=== PATIENT | male | born 1990 | race Caucasian/White ===

== ENCOUNTER 2020-10-12 17:09 | Emergency (ER) | payer OTHER ==
[~2020-10-12] VITALS: Ht 182.9 cm; Wt 89.8 kg
[~2020-10-12 17:09] MED LIST: CYCL10TA2 PO; MORP10CA7 PO; OXYC1TAB14 PO
[2020-10-12 17:13] VITALS: BP 143/81
--- NOTE | 2020-10-12 18:10 | NUR ---
PT TO ROOM 16 W/ C/O DOG BITE TO R ARM AT THUMB BASE. PT STATES HE WENT TO PET THE DOG AND THE DOG BIT PT. PT DENIES NUMBNESS/TINGLING TO THUMB. CMS INTACT. PT RESTING ON [employer]. MALLORIE.
[2020-10-12] MEDS ORDERED: LIDOCAINE-MPF 1%, 5ML ONE (18:22)
[2020-10-12] MEDS ORDERED: IBUPROFEN 600 MG TABLET ONE (18:24)
[2020-10-12] MEDS ORDERED: IBUPROFEN 600 MG TABLET PO ONE (18:30)
--- NOTE | 2020-10-12 19:05 | NUR ---
PT RESTING ON GURNEY. GARCIA
[2020-10-12] MEDS ORDERED: NEOSPORIN OINT. PKT 1 PACKET ONE (20:06)
== END 2020-10-12 20:13 | disposition home or self-care (01) ==
LOC: ED 17:36
DX: S61.411A Laceration without foreign body of right hand, initial encounter (principal); W54.0XXA Bitten by dog, initial encounter; Y93.89 Activity, other specified; Y92.89 Other specified places as the place of occurrence of the external cause; Y99.8 Other external cause status
CPT/HCPCS: 12041; 99284